=== PATIENT | male | born 1965 | race Caucasian/White ===

== ENCOUNTER 2017-08-30 11:42 | Inpatient (IN) | END 2017-09-04 13:15 | disposition home health service (06) | DRG 638 ==

== ENCOUNTER 2017-09-21 13:33 | Emergency (ER) | END 2017-09-21 23:13 | disposition home or self-care (01) ==

== ENCOUNTER 2018-02-02 17:22 | Emergency (ER) | END 2018-02-02 22:03 | disposition home or self-care (01) ==